=== PATIENT | female | born 1975 | race Caucasian/White ===

== ENCOUNTER 2018-09-22 21:02 | Emergency (ER) | payer OTHER, SELFPAY ==
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
[2018-09-22 21:10] VITALS: BP 147/94; PULSE 92; RESP 16; TEMP 37; O2SAT 94
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
[2018-09-22] MEDS: HYDROmorphone 2 MG/ML VIAL 0.5 MG IVP (21:23)
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
[2018-09-22] MEDS: Ketorolac 30 MG/ML VIAL IVP (22:23)
== END 2018-09-22 23:05 | disposition home or self-care (01) ==
LOC: ER 22:32
PROVIDERS: Emergency Provider Emergency Medicine
DX: S93.602A Unspecified sprain of left foot, initial encounter (principal); V18.0XXA Pedal cycle driver injured in noncollision transport accident in nontraffic accident, initial encounter; Y93.55 Activity, bike riding
CPT/HCPCS: 29515; 96374; 96375; 99284; 73610; 73630; E0114; J1885